=== PATIENT | male | born 1965 | race African-American/Black ===

== ENCOUNTER 2018-11-15 18:29 | Observation (INO) ==
[2018-11-15] MEDS ORDERED: ONDANSETRON 4 MG/2 ML VIAL IV PRN (21:16)
[2018-11-15] MEDS ORDERED: ACETAMINOPHEN 325 MG TABLET PO PRN (22:13)
[2018-11-15] MEDS: PROMETHAZINE 25 MG/1 ML VIAL IM PRN (22:21)
[2018-11-15] MEDS: SODIUM CHLORIDE 0.9% 1,000 ML IV SCH (23:15)
[2018-11-16] MEDS ORDERED: GLUCAGON 1 MG VIAL IM PRN (00:25)
[2018-11-16] MEDS ORDERED: DEXTROSE 50% 25 GM/50 ML VIAL IV PRN (00:25)
[2018-11-16] MEDS: INSULIN REGULAR 100 UNIT/ML SUBCUT SCH ×5 (02:39→20:55)
[2018-11-16] MEDS: PROMETHAZINE 25 MG/1 ML VIAL IM PRN ×4 (06:27→23:54)
[2018-11-16 07:14] LABS: Basophils # 0.1 10*3/uL (0.0-0.2); Basophils % 0.5 % (0.0-0.8); Eosinophils # 0.2 10*3/uL (0.0-0.87); Eosinophils % 1.4 % (0.00-10.9); Hematocrit 40.6 VOL% (42.0-52.0); Hemoglobin 13.1 GM/DL (14.0-18.0); Immature Granulocytes % 0.8 %; Immature Granulocytes Absolute 0.09 #; Lymphocytes # 2.7 10*3/uL (1.4-4.0); Lymphocytes % 24.3 % (21.2-54.2); Mean Corpuscular HGB Conc 32.3 GM/DL (32-36); Mean Corpuscular Volume 89.6 FL (87-102); Mean Platelet Volume 8.6 FL (9.6-12.0); Monocytes % 9.3 % (1.7-12.7); Neutrophils % 63.7 % (38.7-73.9); Platelet Count 391 T/CUMM (130-400); Red Blood Count 4.53 MC/CUMM (3.8-5.5); Red Cell Distribution Width 13.4 % (9.3-17.3); White Blood Count 11.1 T/CUMM (4-12)
[2018-11-16 07:44] LABS: Albumin 3.8 G/DL (3.4-5.0); Bilirubin,Total 0.5 MG/DL (0.2-1.0); Calcium 8.7 MG/DL (8.5-10.1); Osmolality,Calculated 279.7 MOS/KG (273-304); Total Protein 7.7 G/DL (6.4-8.3)
[2018-11-16] MEDS ORDERED: hydrALAZINE 20 MG/1 ML VIAL IV PRN (08:24)
[2018-11-16] MEDS: POTASSIUM CHLORIDE RIDER 10 MEQ in PREMIX 1 EACH IV SCH ×3 (08:44→10:49)
[2018-11-16] MEDS: MORPHINE 4 MG/1 ML VIAL IV PRN ×4 (08:44→22:29)
[2018-11-16] MEDS: LORazepam 0.5 MG TABLET PO SCH (09:44)
[2018-11-16] MEDS: PANTOPRAZOLE 40 MG TABLET PO SCH (09:45)
[2018-11-16] MEDS: SODIUM CHLORIDE 0.9% 1,000 ML IV SCH ×2 (09:46→17:31)
[2018-11-16] MEDS ORDERED: MAGNESIUM SULF RIDER 2 GM in PREMIX 1 EACH IV PRN (10:23)
[2018-11-16] MEDS ORDERED: MAGNESIUM SULF RIDER 4 GM in PREMIX 1 EACH IV PRN (10:23)
[2018-11-16] MEDS ORDERED: ALBUTEROL 2.5 MG/3 ML NEB RESP TX PRN ×2 (10:39→15:00)
[2018-11-16 11:21] LABS: Apearance,Urine CLEAR (Clear); Bilirubin,Urine Negative (Negative); Blood, Urine Moderate mg/dL (Negative); Glucose,Urine (UA) >=500 mg/dL (Negative); Hyaline Casts,Urine 1 /LPF (0-3); Ketones,Urine Negative (Negative); Mucus,Urine Occasional /LPF (Occasional); Nitrite,Urine Negative (Negative); Protein,Urine Negative; RBC,Urine 2 /HPF (0-4); Urine Color Yellow (Yellow); Urine Specific Gravity 1.017 (1.001-1.035); Urine Urobilinogen < 2.0 EU/DL (0.2-1.0); WBC,Urine 1 /HPF (0-6)
[2018-11-16] MEDS ORDERED: DEXTROSE 10% 25 GM/250 ML BAG IV PRN (13:15)
[2018-11-17 04:57] LABS: Basophils % 0.4 % (0.0-0.8); Eosinophils # 0.2 10*3/uL (0.0-0.87); Eosinophils % 1.8 % (0.00-10.9); Hematocrit 38.3 VOL% (42.0-52.0); Hemoglobin 12.3 GM/DL (14.0-18.0); Immature Granulocytes % 0.7 %; Immature Granulocytes Absolute 0.06 #; Lymphocytes # 2.6 10*3/uL (1.4-4.0); Lymphocytes % 28.3 % (21.2-54.2); Mean Corpuscular HGB Conc 32.1 GM/DL (32-36); Mean Corpuscular Volume 88.7 FL (87-102); Mean Platelet Volume 8.6 FL (9.6-12.0); Monocytes % 9.5 % (1.7-12.7); Neutrophils % 59.3 % (38.7-73.9); Platelet Count 387 T/CUMM (130-400); Red Blood Count 4.32 MC/CUMM (3.8-5.5); Red Cell Distribution Width 12.9 % (9.3-17.3)
[2018-11-17 05:17] LABS: Calcium 8.4 MG/DL (8.5-10.1); Osmolality,Calculated 274.8 MOS/KG (273-304)
[2018-11-17] MEDS ORDERED: SODIUM PHOSPHATE ENEMA 133 ML BOTTLE RECTAL ONE (06:00)
[2018-11-17] MEDS: SODIUM CHLORIDE 0.9% 1,000 ML IV SCH ×2 (06:35→16:02)
[2018-11-17] MEDS: INSULIN REGULAR 100 UNIT/ML SUBCUT SCH ×3 (07:18→16:28)
[2018-11-17] MEDS: MORPHINE 4 MG/1 ML VIAL IV PRN (07:43)
[2018-11-17] MEDS: PROMETHAZINE 25 MG/1 ML VIAL IM PRN (07:44)
[2018-11-17] MEDS ORDERED: LACTATED RINGERS 1,000 ML IV SCH (08:00)
[2018-11-17] MEDS ORDERED: PROMETHAZINE 25 MG TABLET PO PRN (08:52)
[2018-11-17] MEDS ORDERED: LISINOPRIL 5 MG TABLET PO SCH (09:00)
[2018-11-17] MEDS ORDERED: LIDOCAINE 100 MG/5 ML SYRINGE ONE (10:00)
[2018-11-17] MEDS ORDERED: PROPOFOL 200 MG/20 ML VIAL IV ONE (10:00)
[2018-11-17] MEDS: LORazepam 0.5 MG TABLET PO SCH (10:08)
[2018-11-17] MEDS: PANTOPRAZOLE 40 MG TABLET PO SCH (10:09)
[2018-11-17 15:16] VITALS: BP 138/90
== END 2018-11-17 16:55 | disposition home or self-care (01) ==
LOC: N.3E → SUATTDRO 21:00
PROVIDERS: ADMIT Internal Medicine; ATTEND Internal Medicine

== ENCOUNTER 2019-01-01 17:56 | Observation (INO) ==
[2019-01-01] MEDS ORDERED: POTASSIUM CHLORIDE 20 MEQ TABLET PO PRN (20:01)
[2019-01-01] MEDS ORDERED: DEXTROSE 50% 25 GM/50 ML VIAL IV PRN (20:01)
[2019-01-01] MEDS ORDERED: GLUCAGON 1 MG VIAL IM PRN (20:01)
[2019-01-01] MEDS ORDERED: ONDANSETRON 4 MG/2 ML VIAL IV PRN (20:01)
[2019-01-01 20:10] LABS: Basophils # 0.1 10*3/uL (0.0-0.2); Basophils % 0.6 % (0.0-0.8); Eosinophils # 0.3 10*3/uL (0.0-0.87); Eosinophils % 3.1 % (0.00-10.9); Hematocrit 33.5 VOL% (42.0-52.0); Hemoglobin 10.7 GM/DL (14.0-18.0); Immature Granulocytes % 0.8 %; Immature Granulocytes Absolute 0.08 #; Lymphocytes # 3.1 10*3/uL (1.4-4.0); Lymphocytes % 30.8 % (21.2-54.2); Mean Corpuscular HGB Conc 31.9 GM/DL (32-36); Mean Corpuscular Volume 90.1 FL (87-102); Mean Platelet Volume 8.8 FL (9.6-12.0); Monocytes % 7.6 % (1.7-12.7); Neutrophils % 57.1 % (38.7-73.9); Platelet Count 367 T/CUMM (130-400); Red Blood Count 3.72 MC/CUMM (3.8-5.5); Red Cell Distribution Width 13.2 % (9.3-17.3)
[2019-01-01 20:33] LABS: Alanine Aminotransferase 28 U/L (16-61); Albumin 3.4 G/DL (3.4-5.0); Alkaline Phosphatase 74 U/L (45-117); Aspartate Amino Transferase 13 U/L (0-37); Bilirubin,Total < 0.39 MG/DL (0.2-1.0); Blood Urea Nitrogen 9 MG/DL (7-18); Estimated Glom Filtration Rate 183 ML/MIN; Glucose 106 MG/DL (74-106); Osmolality,Calculated 277.4 MOS/KG (273-304)
[2019-01-01] MEDS: MORPHINE 4 MG/1 ML VIAL IV PRN (20:47)
[2019-01-01] MEDS: INSULIN REGULAR 100 UNIT/ML SUBCUT SCH (20:52)
[2019-01-01 20:54] LABS: Risk Ratio 5.85; Thyroid Stimulating Hormone 1.31 uIU/ml (0.358-3.74); VLDL CHOLESTEROL 70.8 MG/DL
[2019-01-01] MEDS ORDERED: ENOXAPARIN 80 MG/0.8 ML SYRINGE SUBCUT SCH (21:00)
[2019-01-01] MEDS ORDERED: MAGNESIUM SULF RIDER 4 GM in PREMIX 1 EACH IV PRN (21:03)
[2019-01-01] MEDS: MAGNESIUM SULF RIDER 2 GM in PREMIX 1 EACH IV PRN (21:44)
[2019-01-01] MEDS: ACETAMINOPHEN 325 MG TABLET PO PRN (22:07)
[2019-01-01] MEDS ORDERED: INFLUENZA VIRUS VACCINE 0.5 ML SYRINGE IM ONE (22:25)
[2019-01-01 23:08] LABS: Barbiturates Screen,Urine Negative (Negative); Benzodiazepines Screen,Urine Negative (Negative); Cannabinoid Screen,Urine Negative (Negative); Opiate Screen,Urine Positive (Negative); Phencyclidine Screen,Urine Negative (Negative)
[2019-01-02] MEDS: NITROGLYCERIN 2% OINT 1 INCH/GM PACK TOP SCH ×4 (00:40→12:05)
[2019-01-02] MEDS: MAGNESIUM SULF RIDER 2 GM in PREMIX 1 EACH IV PRN (00:46)
[2019-01-02 01:56] LABS: Troponin I < 0.015 NG/ML (0.00-0.045)
[2019-01-02] MEDS: guaiFENesin/DM ER 600-30 MG TABLET PO SCH ×2 (06:36→10:08)
[2019-01-02] MEDS ORDERED: FLUTICASONE 50 MCG NASAL SPRAY 16 GM BOTTLE BOTH NARES PRN (07:00)
[2019-01-02] MEDS: INSULIN REGULAR 100 UNIT/ML SUBCUT SCH ×2 (08:39→12:33)
[2019-01-02] MEDS: MORPHINE 4 MG/1 ML VIAL IV PRN (08:47)
[2019-01-02] MEDS ORDERED: PANTOPRAZOLE 40 MG TABLET PO SCH (09:00)
[2019-01-02] MEDS ORDERED: ASPIRIN EC 325 MG TABLET PO SCH (09:00)
[2019-01-02] MEDS ORDERED: ASPIRIN EC 81 MG TABLET PO SCH (10:00)
[2019-01-02 11:58] VITALS: BP 145/92
[2019-01-02] MEDS: ACETAMINOPHEN 325 MG TABLET PO PRN (12:03)
== END 2019-01-02 16:20 | disposition home or self-care (01) ==
LOC: N.2W
PROVIDERS: ADMIT Internal Medicine; ATTEND Family Medicine

== ENCOUNTER 2020-03-16 13:31 | Observation (INO) ==
[2020-03-16 13:59] LABS: Basophils # 0.1 10*3/uL (0.0-0.2); Basophils % 0.8 % (0.0-0.8); Eosinophils # 0.4 10*3/uL (0.0-0.87); Eosinophils % 4.8 % (0.00-10.9); Hematocrit 39.3 VOL% (42.0-52.0); Hemoglobin 12.3 GM/DL (14.0-18.0); Immature Granulocytes % 0.3 %; Immature Granulocytes Absolute 0.02 #; Lymphocytes % 37.8 % (21.2-54.2); Mean Corpuscular HGB Conc 31.3 GM/DL (32-36); Mean Platelet Volume 8.7 FL (9.6-12.0); Monocytes % 7.3 % (1.7-12.7); Platelet Count 396 T/CUMM (130-400); Red Blood Count 4.32 MC/CUMM (3.8-5.5)
[2020-03-16 14:35] LABS: Alanine Aminotransferase 92 U/L (16-61); Albumin 3.5 G/DL (3.4-5.0); Alkaline Phosphatase 107 U/L (45-117); Aspartate Amino Transferase 48 U/L (0-37); Bilirubin,Total < 0.39 MG/DL (0.2-1.0); Blood Urea Nitrogen 15 MG/DL (7-18); Calcium 8.8 MG/DL (8.5-10.1); Carbon Dioxide 23 MMOL/L (21-32); Estimated Glom Filtration Rate 142 ML/MIN; Glucose 180 MG/DL (74-106); Osmolality,Calculated 286.3 MOS/KG (273-304); Potassium 3.8 MMOL/L (3.5-5.1); Sodium 141 MMOL/L (136-145); Total Protein 7.2 G/DL (6.4-8.3)
[2020-03-16 14:38] LABS: Eosinophils 6 % (0-10); Lymphocytes 38 % (20-55); Segmented Neutrophils 51 % (50-85); Total Cells Counted 100
[2020-03-16 14:39] LABS: Platelet Estimate Adequate; Reactive Lymphocytes Few
[2020-03-16] MEDS ORDERED: ASPIRIN 325 MG TABLET PO STA (15:02)
[2020-03-16] MEDS ORDERED: MORPHINE 4 MG/1 ML VIAL IV STA (15:04)
[2020-03-16] MEDS ORDERED: LORazepam 0.5 MG TABLET PO PRN (16:58)
[2020-03-16] MEDS ORDERED: NITROGLYCERIN SL 0.4 MG TABLET SL PRN (16:58)
[2020-03-16] MEDS ORDERED: ACETAMINOPHEN 325 MG TABLET PO PRN (17:12)
[2020-03-16] MEDS ORDERED: GLUCAGON 1 MG VIAL IM PRN (17:12)
[2020-03-16] MEDS ORDERED: DEXTROSE 50% 25 GM/50 ML VIAL IV PRN (17:12)
[2020-03-16] MEDS ORDERED: ONDANSETRON 4 MG/2 ML VIAL IV PRN (17:12)
[2020-03-16] MEDS ORDERED: POTASSIUM CHLORIDE 20 MEQ TABLET PO PRN (17:29)
[2020-03-16] MEDS ORDERED: MAGNESIUM SULF RIDER 4 GM in PREMIX 1 EACH IV PRN (17:30)
[2020-03-16] MEDS ORDERED: MAGNESIUM SULF RIDER 2 GM in PREMIX 1 EACH IV PRN (17:30)
[2020-03-16] MEDS: ENOXAPARIN 40 MG/0.4 ML SYRINGE SUBCUT SCH (19:12)
[2020-03-16] MEDS: NITROGLYCERIN SL 0.4 MG TABLET SL PRN (19:43)
[2020-03-16] MEDS ORDERED: PREGABALIN 50 MG CAPSULE PO SCH (21:00)
[2020-03-16] MEDS: DOXYCYCLINE HYCLATE 100 MG CAPSULE PO SCH (23:19)
[2020-03-16] MEDS: ATORVASTATIN 40 MG TABLET PO SCH (23:19)
[2020-03-16] MEDS: NICOTINE 7 MG/24 HR PATCH TRANSDERM SCH (23:22)
[2020-03-16] MEDS: ALBUTEROL 2.5 MG/3 ML NEB RESP TX SCH (23:44)
[2020-03-16] MEDS: INSULIN LISPRO 100 UNIT/ML SUBCUT SCH (23:44)
[2020-03-17] MEDS: PREGABALIN 100 MG CAPSULE PO SCH ×4 (00:28→21:54)
[2020-03-17] MEDS: NITROGLYCERIN SL 0.4 MG TABLET SL PRN ×3 (01:50→02:00)
[2020-03-17] MEDS: MORPHINE 4 MG/1 ML VIAL IV PRN ×3 (02:15→14:53)
[2020-03-17] MEDS: LORazepam 1 MG TABLET PO PRN ×3 (02:17→21:56)
[2020-03-17 02:42] LABS: Basophils # 0.1 10*3/uL (0.0-0.2); Basophils % 0.8 % (0.0-0.8); Eosinophils # 0.5 10*3/uL (0.0-0.87); Hematocrit 39.2 VOL% (42.0-52.0); Hemoglobin 12.2 GM/DL (14.0-18.0); Immature Granulocytes % 0.4 %; Immature Granulocytes Absolute 0.03 #; Lymphocytes # 3.4 10*3/uL (1.4-4.0); Lymphocytes % 44.3 % (21.2-54.2); Mean Corpuscular HGB Conc 31.1 GM/DL (32-36); Mean Corpuscular Volume 91.2 FL (87-102); Mean Platelet Volume 8.6 FL (9.6-12.0); Monocytes % 7.3 % (1.7-12.7); Neutrophils % 41.2 % (38.7-73.9); Platelet Count 391 T/CUMM (130-400); Red Cell Distribution Width 13.2 % (9.3-17.3); White Blood Count 7.7 T/CUMM (4-12)
[2020-03-17 03:14] LABS: Calcium 8.7 MG/DL (8.5-10.1); Osmolality,Calculated 283.4 MOS/KG (273-304); Potassium 3.8 MMOL/L (3.5-5.1)
[2020-03-17 03:15] LABS: Alanine Aminotransferase 84 U/L (16-61); Albumin 3.4 G/DL (3.4-5.0); Alkaline Phosphatase 91 U/L (45-117); Aspartate Amino Transferase 35 U/L (0-37); Bilirubin,Direct < 0.050 MG/DL (0.0-0.20); Bilirubin,Indirect 0.3 MG/DL (0.0-1.0); Bilirubin,Total < 0.39 MG/DL (0.2-1.0); Total Protein 7.3 G/DL (6.4-8.3)
[2020-03-17 03:26] LABS: Hypochromasia 1+; Platelet Estimate Normal
[2020-03-17] MEDS: ALBUTEROL 2.5 MG/3 ML NEB RESP TX SCH ×5 (07:23→19:25)
[2020-03-17] MEDS: INSULIN LISPRO 100 UNIT/ML SUBCUT SCH ×4 (08:16→21:55)
[2020-03-17] MEDS: MAGNESIUM OXIDE 400 MG TABLET PO SCH (08:17)
[2020-03-17] MEDS: allopurinoL 300 MG TABLET PO SCH (08:19)
[2020-03-17] MEDS: ALFUZOSIN 10 MG TABLET PO SCH (08:19)
[2020-03-17] MEDS: amLODIPine 5 MG TABLET PO SCH (08:19)
[2020-03-17] MEDS: ESCITALOPRAM 10 MG TABLET PO SCH (08:26)
[2020-03-17] MEDS: DOXYCYCLINE HYCLATE 100 MG CAPSULE PO SCH ×2 (08:26→21:54)
[2020-03-17] MEDS: LINACLOTIDE 145 MCG CAPSULE PO SCH (08:31)
[2020-03-17] MEDS ORDERED: LORazepam 2 MG/1 ML VIAL IV ONE (15:39)
[2020-03-17] MEDS: ASPIRIN EC 81 MG TABLET PO SCH (15:45)
[2020-03-17] MEDS: ENOXAPARIN 40 MG/0.4 ML SYRINGE SUBCUT SCH (17:27)
[2020-03-17] MEDS: PANTOPRAZOLE 40 MG VIAL IV SCH (17:27)
[2020-03-17] MEDS: NICOTINE 7 MG/24 HR PATCH TRANSDERM SCH (21:54)
[2020-03-17] MEDS: METOPROLOL TARTRATE 25 MG TABLET PO SCH (21:54)
[2020-03-17] MEDS: ATORVASTATIN 40 MG TABLET PO SCH (21:54)
[2020-03-18] MEDS: MORPHINE 4 MG/1 ML VIAL IV PRN ×2 (04:33→09:27)
[2020-03-18] MEDS: NITROGLYCERIN SL 0.4 MG TABLET SL PRN (04:36)
[2020-03-18 05:30] LABS: Risk Ratio 4.96; VLDL CHOLESTEROL 116.6 MG/DL
[2020-03-18] MEDS: LORazepam 1 MG TABLET PO PRN (06:20)
[2020-03-18] MEDS: ALBUTEROL 2.5 MG/3 ML NEB RESP TX SCH (07:40)
[2020-03-18 09:05] VITALS: BP 130/65
[2020-03-18] MEDS: INSULIN LISPRO 100 UNIT/ML SUBCUT SCH (09:06)
[2020-03-18] MEDS: amLODIPine 5 MG TABLET PO SCH (09:23)
[2020-03-18] MEDS: LINACLOTIDE 145 MCG CAPSULE PO SCH (09:23)
[2020-03-18] MEDS: DOXYCYCLINE HYCLATE 100 MG CAPSULE PO SCH (09:24)
[2020-03-18] MEDS: allopurinoL 300 MG TABLET PO SCH (09:24)
[2020-03-18] MEDS: ALFUZOSIN 10 MG TABLET PO SCH (09:24)
[2020-03-18] MEDS: MAGNESIUM OXIDE 400 MG TABLET PO SCH (09:24)
[2020-03-18] MEDS: ASPIRIN EC 81 MG TABLET PO SCH (09:25)
[2020-03-18] MEDS: METOPROLOL TARTRATE 25 MG TABLET PO SCH (09:25)
[2020-03-18] MEDS: PREGABALIN 100 MG CAPSULE PO SCH (09:26)
[2020-03-18] MEDS: PANTOPRAZOLE 40 MG VIAL IV SCH (09:26)
[2020-03-18] MEDS: ESCITALOPRAM 10 MG TABLET PO SCH (09:26)
== END 2020-03-18 11:25 | disposition home or self-care (01) ==
LOC: N.ED 13:31 → N.EDINP 13:31 → SUATTDRO 17:12 → N.TELES 22:28
PROVIDERS: ADMIT Phlebology; ATTEND Internal Medicine

== ENCOUNTER 2020-03-25 03:06 | Observation (INO) ==
[2020-03-25] MEDS ORDERED: MORPHINE 4 MG/1 ML VIAL IV STA (03:28)
[2020-03-25] MEDS ORDERED: ALUM/MAG/SIMETH/LIDO VISC 1:1 30 ML BOTTLE PO STA (03:28)
[2020-03-25] MEDS ORDERED: NITROGLYCERIN 2% OINT 1 INCH/GM PACK TOP STA (03:28)
[2020-03-25] MEDS ORDERED: ONDANSETRON 4 MG/2 ML VIAL IV STA (03:28)
[2020-03-25] MEDS ORDERED: ASPIRIN 325 MG TABLET PO STA (03:28)
[2020-03-25 04:22] LABS: Basophils # 0.1 10*3/uL (0.0-0.2); Basophils % 0.9 % (0.0-0.8); Eosinophils # 0.6 10*3/uL (0.0-0.87); Eosinophils % 6.2 % (0.00-10.9); Hematocrit 41.6 VOL% (42.0-52.0); Hemoglobin 13.2 GM/DL (14.0-18.0); Immature Granulocytes % 0.4 %; Immature Granulocytes Absolute 0.04 #; Lymphocytes # 3.6 10*3/uL (1.4-4.0); Lymphocytes % 40.4 % (21.2-54.2); Mean Corpuscular HGB Conc 31.7 GM/DL (32-36); Mean Corpuscular Volume 88.1 FL (87-102); Monocytes % 7.5 % (1.7-12.7); Neutrophils % 44.6 % (38.7-73.9); Platelet Count 394 T/CUMM (130-400); Red Blood Count 4.72 MC/CUMM (3.8-5.5); White Blood Count 8.9 T/CUMM (4-12)
[2020-03-25 04:34] LABS: Platelet Estimate Adequate
[2020-03-25 04:36] LABS: INR 1.1; PT Patient Result 11.4 SECS (9.8-11.9)
[2020-03-25 04:49] LABS: Alanine Aminotransferase 42 U/L (16-61); Albumin 3.7 G/DL (3.4-5.0); Alkaline Phosphatase 81 U/L (45-117); Aspartate Amino Transferase 26 U/L (0-37); Bilirubin,Total < 0.39 MG/DL (0.2-1.0); Blood Urea Nitrogen 22 MG/DL (7-18); Calcium 9.2 MG/DL (8.5-10.1); Carbon Dioxide 19 MMOL/L (21-32); Estimated Glom Filtration Rate 142 ML/MIN; Glucose 160 MG/DL (74-106); Potassium 4.3 MMOL/L (3.5-5.1); Sodium 136 MMOL/L (136-145); Total Protein 7.5 G/DL (6.4-8.3)
[2020-03-25] MEDS ORDERED: MAGNESIUM SULF RIDER 2 GM in PREMIX 1 EACH IV STA (04:50)
[2020-03-25] MEDS ORDERED: ENOXAPARIN 100 MG/ML SYRINGE SUBCUT STA (04:53)
[2020-03-25 05:03] LABS: Ferritin 71.3 ng/ml (26-388)
[2020-03-25 05:13] LABS: Bilirubin,Urine Negative (Negative); Blood, Urine Small mg/dL (Negative); Glucose,Urine (UA) Negative (Negative); Hyaline Casts,Urine 1 /LPF (0-3); Ketones,Urine Negative (Negative); Mucus,Urine Occasional /LPF (Occasional); Nitrite,Urine Negative (Negative); Protein,Urine 30 MG/DL; RBC,Urine 2 /HPF (0-4); Squamous Epithelial Cell,Urine Occasional /HPF (0-10); Urine Appearance CLEAR (Clear); Urine Color Yellow (Yellow); Urine Specific Gravity 1.023 (1.001-1.035); Urine Urobilinogen < 2.0 EU/DL (0.2-1.0); WBC,Urine <1 /HPF (0-6)
[2020-03-25] MEDS ORDERED: ENOXAPARIN 120 MG/0.8 ML SYRINGE SUBCUT ONE (05:13)
[2020-03-25] MEDS ORDERED: ALBUTEROL 2.5 MG/3 ML NEB RESP TX PRN (05:35)
[2020-03-25] MEDS ORDERED: GLUCAGON 1 MG VIAL IM PRN ×2 (05:35)
[2020-03-25] MEDS ORDERED: DEXTROSE 50% 25 GM/50 ML VIAL IV PRN ×2 (05:35)
[2020-03-25] MEDS ORDERED: ACETAMINOPHEN 325 MG TABLET PO PRN (05:35)
[2020-03-25] MEDS ORDERED: ONDANSETRON 4 MG/2 ML VIAL IV PRN (05:35)
[2020-03-25] MEDS ORDERED: NITROGLYCERIN SL 0.4 MG TABLET SL PRN (05:38)
[2020-03-25 05:59] LABS: Barbiturates Screen,Urine Negative (Negative); Benzodiazepines Screen,Urine Negative (Negative); Cannabinoid Screen,Urine Negative (Negative); Opiate Screen,Urine Positive (Negative); Phencyclidine Screen,Urine Negative (Negative)
[2020-03-25] MEDS: INSULIN LISPRO 100 UNIT/ML SUBCUT SCH ×4 (08:00→20:59)
[2020-03-25] MEDS: METOPROLOL TARTRATE 25 MG TABLET PO SCH ×2 (09:10→20:42)
[2020-03-25] MEDS: LISINOPRIL/HCTZ 20-25 MG TABLET PO SCH (09:10)
[2020-03-25] MEDS: PREGABALIN 50 MG CAPSULE PO SCH ×3 (09:10→20:42)
[2020-03-25] MEDS: LINACLOTIDE 145 MCG CAPSULE PO SCH (09:10)
[2020-03-25] MEDS: ESCITALOPRAM 10 MG TABLET PO SCH (09:10)
[2020-03-25] MEDS: PANTOPRAZOLE 40 MG TABLET PO SCH ×2 (09:10→20:42)
[2020-03-25] MEDS: ASPIRIN EC 81 MG TABLET PO SCH (09:10)
[2020-03-25] MEDS: allopurinoL 300 MG TABLET PO SCH (09:10)
[2020-03-25] MEDS: amLODIPine 5 MG TABLET PO SCH (09:10)
[2020-03-25] MEDS: LORazepam 0.5 MG TABLET PO PRN ×2 (09:20→20:57)
[2020-03-25] MEDS ORDERED: LORazepam 1 MG TABLET ONE (09:20)
[2020-03-25] MEDS ORDERED: ALUM/MAG/SIMETH/LIDO VISC 1:1 30 ML BOTTLE PO ONE (11:42)
[2020-03-25] MEDS: MORPHINE 4 MG/1 ML VIAL IV PRN (15:55)
[2020-03-25] MEDS ORDERED: ATORVASTATIN 40 MG TABLET PO SCH (21:00)
[2020-03-26] MEDS: MORPHINE 4 MG/1 ML VIAL IV PRN ×2 (00:07→09:48)
[2020-03-26] MEDS ORDERED: ENOXAPARIN 40 MG/0.4 ML SYRINGE SUBCUT SCH (06:00)
[2020-03-26] MEDS: ESCITALOPRAM 10 MG TABLET PO SCH (09:39)
[2020-03-26] MEDS: LISINOPRIL/HCTZ 20-25 MG TABLET PO SCH (09:39)
[2020-03-26] MEDS: METOPROLOL TARTRATE 25 MG TABLET PO SCH (09:39)
[2020-03-26] MEDS: amLODIPine 5 MG TABLET PO SCH (09:39)
[2020-03-26] MEDS: LINACLOTIDE 145 MCG CAPSULE PO SCH (09:39)
[2020-03-26] MEDS: ASPIRIN EC 81 MG TABLET PO SCH (09:39)
[2020-03-26] MEDS: allopurinoL 300 MG TABLET PO SCH (09:40)
[2020-03-26] MEDS: PANTOPRAZOLE 40 MG TABLET PO SCH (09:45)
[2020-03-26] MEDS: INSULIN LISPRO 100 UNIT/ML SUBCUT SCH ×2 (09:50→11:40)
[2020-03-26] MEDS ORDERED: HydrOXYzine PAMOATE 25 MG CAPSULE PO PRN (10:24)
[2020-03-26] MEDS: PREGABALIN 50 MG CAPSULE PO SCH (10:56)
[2020-03-26] MEDS ORDERED: SUCRALFATE 1 GM/10 ML UDCUP PO SCH (11:30)
[2020-03-26 12:03] VITALS: BP 138/79
== END 2020-03-26 12:42 | disposition home or self-care (01) ==
LOC: N.EDINP 03:06 → N.ED 03:06 → SUATTDRO 05:35 → N.TELEN 12:12
PROVIDERS: ADMIT Internal Medicine; ATTEND Emergency Medicine